=== PATIENT | female | born 1960 | race Hispanic/Latino ===

== ENCOUNTER → 2018-09-30 | Day surgery (SDC) | payer OTHER ==
[~2018-09-30] MED LIST: FENTANYL CITRATE/PF 100MCG/2 ML INJ ONE; LIDOCAINE HCL 2% LOCAL INJ 5 ML SDV VIAL INJ ONE; MIDAZOLAM HCL 2 MG/2 ML VIAL ONE; PROPOFOL IV EMULSION 10 MG/ML 50 ML VIAL ONE; [UNRECOGNIZED DRUG - OTHER] PO
[2018-09-30 13:55] VITALS: BP 105/60
--- NOTE | 2018-09-30 19:19 | Operative Report ---
DATE OF PROCEDURE: 09/30/2018 SURGEON: Nakul Phillips MD PROCEDURE: Esophagogastroduodenoscopy with biopsies. INDICATIONS FOR PROCEDURE: Heartburn, indigestion, bloating. MEDICATIONS: The patient was done under MAC, please see anesthesiologist's note. PROCEDURE IN DETAIL: With the patient in left lateral decubitus position, flexible fiberoptic Olympus gastroscope was introduced into the esophagus under direct visualization without any difficulty. There was some patchy intense erythema noted in the distal esophagus. The scope was then advanced with ease into the stomach. Mucosa overlying the antrum and the body revealed some patchy erythema and mild to moderate edema and biopsies were obtained and sent to stain for H pylori. Hyperplastic appearing polyps were noted in the body of the stomach and somewhat partially excised with the cold biopsy forceps. The pylorus was of normal contour and shape, it was intubated with ease and the scope was advanced all the way to the second portion of the duodenum. The scope was then withdrawn slowly and biopsies were obtained from the second portion and the duodenal bulb to rule out sprue. The scope was then withdrawn back into the stomach and retroflexed. Mucosa overlying the fundus and the cardia appeared to be within normal limits. The scope was then straightened out, it was subsequently withdrawn. The patient tolerated the procedure well. IMPRESSION: 1. Distal esophagitis, moderate. 2. Gastritis. 3. Gastric polyps, hyperplastic appearing, body, some partially excised with cold biopsy forceps. 4. Rule out sprue. PLAN: Follow up histology. Initiate Protonix 40 mg one p.o. q.a.m. a.c. Nakul Phillips MD [facility] [place] /[id number] cc: Johnny Liu MD
== END | disposition home or self-care (01) ==
LOC: OR 08:35
PROVIDERS: ATTEND Internal Medicine Gastroenterology
DX: K21.0 Gastro-esophageal reflux disease with esophagitis (principal); M54.2 Cervicalgia; M54.9 Dorsalgia, unspecified; K29.70 Gastritis, unspecified, without bleeding; K31.7 Polyp of stomach and duodenum; Z80.0 Family history of malignant neoplasm of digestive organs; R14.0 Abdominal distension (gaseous); Z01.810 Encounter for preprocedural cardiovascular examination; K29.50 Unspecified chronic gastritis without bleeding
CPT/HCPCS: 43239; 93005; J2001; J2250; J2704; J3010

== ENCOUNTER → 2021-08-29 | Day surgery (SDC) | payer BC, OTHER ==
[~2021-08-29] MED LIST changes: +HYOSCYAMINE SULFATE 0.5 MG/ML INJ ONE; +PROPOFOL IV EMULSION 10 MG/ML 20 ML VIAL ONE; -PROPOFOL IV EMULSION 10 MG/ML 50 ML VIAL ONE
[2021-08-29 09:20] VITALS: BP 125/69
== END | disposition home or self-care (01) ==
LOC: OR 07:06
PROVIDERS: ATTEND Internal Medicine Gastroenterology
DX: K59.09 Other constipation (principal); D12.5 Benign neoplasm of sigmoid colon; K31.7 Polyp of stomach and duodenum; K29.70 Gastritis, unspecified, without bleeding; K20.90 Esophagitis, unspecified without bleeding; K64.8 Other hemorrhoids; R63.4 Abnormal weight loss; F41.9 Anxiety disorder, unspecified; Z01.810 Encounter for preprocedural cardiovascular examination; Z86.19 Personal history of other infectious and parasitic diseases; Z80.0 Family history of malignant neoplasm of digestive organs
CPT/HCPCS: 43239; 45380; 93005; C9113; J1980; J2001; J2250; J2704; J3010; 45378; 45385

== ENCOUNTER 2024-02-28 15:48 | Emergency (ER) | payer BC ==
[~2024-02-28] VITALS: Ht 160 cm; Wt 47.2 kg
[~2024-02-28 15:48] MED LIST changes: +AMOX TR-K CLV1 EAC2 PO; -FENTANYL CITRATE/PF 100MCG/2 ML INJ ONE; -HYOSCYAMINE SULFATE 0.5 MG/ML INJ ONE; +LACTULOSE20 GM/30 M PO; -LIDOCAINE HCL 2% LOCAL INJ 5 ML SDV VIAL INJ ONE; -MIDAZOLAM HCL 2 MG/2 ML VIAL ONE; +ONDANSETRON ODT4 MG PO; -PROPOFOL IV EMULSION 10 MG/ML 20 ML VIAL ONE; +ULTRAM 50MG50 MG PO
[2024-02-28 16:16] VITALS: PULSE 60; RESP 18; TEMP 98.4; O2SAT 100
[2024-02-28 16:42] LABS: BASOPHILS % 0.5 % (0.0-1.0); EOSINOPHILS % 0.6 % (0.0-6.0); HEMATOCRIT 38.9 % (34.2-44.1); HEMOGLOBIN 12.2 g/dL (12.0-16.0); LYMPHOCYTES # (AUTO) 2.1 (1.0-3.2); LYMPHOCYTES % 33.4 % (18.0-39.1); MEAN CORPUSCULAR HEMOGLOBIN 29.8 pg (28-32); MEAN CORPUSCULAR HGB CONC 31.4 g/dL (31-35); MEAN CORPUSCULAR VOLUME 95.1 fL (81-99); MONOCYTES # (AUTO) 0.6 (0.2-0.8); MONOCYTES % 9.5 % (4.4-11.3); NEUTROPHILS # (AUTO) 3.5 (2.1-6.9); NEUTROPHILS % 55.8 % (38.7-80.0); PLATELET COUNT 288 x10e3/uL (140-360); RED BLOOD COUNT 4.09 x10e6/uL (3.6-5.1); RED CELL DISTRIBUTION WIDTH 12.7 % (11.7-14.4); WHITE BLOOD COUNT 6.29 x10e3/uL (4.8-10.8)
[2024-02-28 16:49] LABS: CLARITY,URINE CLEAR (CLEAR); COLOR,URINE YELLOW (YELLOW); GLUCOSE, URINE NEGATIVE (NEGATIVE); KETONES,URINE 1+ (NEGATIVE); LEUKOCYTE ESTERASE ,URINE SMALL (NEGATIVE); NITRITE,URINE NEGATIVE (NEGATIVE); PH,URINE 7 (5 - 7); PROTEIN,URINE DIPSTICK NEGATIVE (NEGATIVE)
[2024-02-28 16:50] LABS: BILIRUBIN,URINE NEGATIVE (NEGATIVE); URINE UROBILINOGEN 0.2 mg/dL (0.2 - 1)
[2024-02-28 16:51] LABS: BACTERIA,URINE RARE /HPF; EPITHELIAL CELLS,URINE FEW /LPF; RBC,URINE 0-5 /HPF (0-5); WBC,URINE (MAN) 0-5 /HPF (0-5)
[2024-02-28] MEDS: SODIUM CHLORIDE 0.9% 1000ML 1,000 ML IV STA (16:51)
[2024-02-28] MEDS: ONDANSETRON HCL INJ 2MG/ML 2ML 2 MG/ML VIAL IV PRN (16:52)
[2024-02-28] MEDS: DICYCLOMINE HCL 20 MG/2 ML VIAL IM ONE (16:52)
[2024-02-28] MEDS: MAGNESIUM/ALUMINUM/SIMETHICONE 30 ML UDC PO ONE (17:03)
[2024-02-28] MEDS: BELLADONNA ALK/PHENOBARBITAL 5 ML UDC PO STA (17:04)
[2024-02-28] MEDS: LIDOCAINE VISC 2% SOLN 15 ML UDC PO ONE (17:04)
[2024-02-28 17:08] LABS: ALBUMIN 4.3 g/dL (3.5-5.0); ALBUMIN/GLOBULIN RATIO 1.3 (0.8-2.0); ANION GAP 17.2 mmol/L (8-16); BILIRUBIN,TOTAL 0.9 mg/dL (0.2-1.2); CALCIUM 9.7 mg/dL (8.4-10.2); CREATININE, SERUM 0.91 mg/dL (0.57-1.11); POTASSIUM 4.2 mmol/L (3.5-5.1); TOTAL PROTEIN 7.5 g/dL (6.5-8.1)
[2024-02-28] MEDS ORDERED: OMEPRAZOLE40 MG PO (17:29)
[2024-02-28] MEDS ORDERED: CARAFATE1 GM PO (17:30)
[2024-02-28] MEDS ORDERED: CEFDINIR300 MG PO (17:44)
[2024-03-02] MEDS ORDERED: LIPITOR10 MG PO (10:11)
[2024-03-02] MEDS ORDERED: LEVOTHYROXINE50 MCG PO (10:11)
== END 2024-02-28 18:25 | disposition home or self-care (01) ==
LOC: ER 15:58
DX: R10.33 Periumbilical pain (principal); K29.70 Gastritis, unspecified, without bleeding; E78.5 Hyperlipidemia, unspecified; E03.9 Hypothyroidism, unspecified; M54.9 Dorsalgia, unspecified; G89.29 Other chronic pain
CPT/HCPCS: 36415; 80053; 81001; 83690; 85025; 99283; J2405; J2470; J7030

== ENCOUNTER → 2024-03-03 | Day surgery (SDC) | payer BC ==
[2024-03-02 13:36] LABS: ANION GAP 16.2 mmol/L (8-16); CALCIUM 9.9 mg/dL (8.4-10.2); CREATININE, SERUM 0.77 mg/dL (0.57-1.11); POTASSIUM 4.2 mmol/L (3.5-5.1)
[~2024-03-03] MED LIST changes: +CARAFATE1 GM PO; +CEFDINIR300 MG PO; +FENTANYL CITRATE/PF 100MCG/2 ML INJ ONE; +GLUCAGON FOR INJ 1 MG VIAL ONE; +LACTATED RINGER'S 1,000 ML ONE; +LEVOTHYROXINE50 MCG PO; +LIDOCAINE HCL 2% LOCAL INJ 5 ML SDV VIAL INJ ONE; +LIPITOR10 MG PO; +METOCLOPRAMIDE HCL 10 MG/2ML VIAL ONE; +OMEPRAZOLE40 MG PO; +PROPOFOL IV EMULSION 10 MG/ML 20 ML VIAL ONE
[2024-03-03 16:02] VITALS: TEMP 98.1
[2024-03-03 16:22] VITALS: BP 104/58; PULSE 64; RESP 18; O2SAT 99
[2024-03-07 08:10] LABS: ENDOMYSIAL ANTIBODIES, IGA Negative (Negative)
[2024-03-07 08:23] LABS: IMMUNOGLOBULIN A 224 mg/dL (87-352); TISSUE TRANSGLUTAMINASE IGA AB <2 U/mL (0-3)
== END | disposition home or self-care (01) ==
LOC: OR 13:32
PROVIDERS: ATTEND Internal Medicine Gastroenterology
DX: K29.50 Unspecified chronic gastritis without bleeding (principal); K31.7 Polyp of stomach and duodenum; K29.80 Duodenitis without bleeding; K20.90 Esophagitis, unspecified without bleeding; K21.9 Gastro-esophageal reflux disease without esophagitis; K44.9 Diaphragmatic hernia without obstruction or gangrene; R19.5 Other fecal abnormalities; Z86.0100 Personal history of colon polyps, unspecified; Z71.3 Dietary counseling and surveillance; R53.83 Other fatigue; E78.5 Hyperlipidemia, unspecified; E03.9 Hypothyroidism, unspecified; Z01.810 Encounter for preprocedural cardiovascular examination; Z01.812 Encounter for preprocedural laboratory examination; Z79.899 Other long term (current) drug therapy; Z86.16 Personal history of COVID-19; Z80.0 Family history of malignant neoplasm of digestive organs
CPT/HCPCS: 36415; 43239; 43251; 80048; 82784; 83516; 86256; 93005; J2003; J2470; J2704; J2765; J7121; J1610